=== PATIENT | female | born 1955 | race Caucasian/White ===

== ENCOUNTER 2019-12-15 09:34 | Outpatient (CLI) | payer MEDICARE, SELFPAY ==
--- NOTE | 2019-12-15 09:41 | MM_ITS ---
WS: [id number] SCREENING DIGITAL MAMMOGRAM WITH CAD HISTORY: SCREENING COMPARISON: 01/20/2018 and 12/20/2016 Bilateral CC and MLO views submitted. Computer aided detection analyzed. Breast composition: There are scattered areas of fibroglandular density. No suspicious masses, microc alcifications or architectural distortion. Benign calcifications within each breast. MM/[place] [id number] IMPRESSION: BI-RADS: 2-Benign FOLLOW UP: 1 Year Follow-up
== END 2019-12-15 09:35 | disposition home or self-care (01) ==
LOC: RADSHAW 09:38
PROVIDERS: Family Provider Family Medicine; Visit Provider Family Medicine
DX: Z12.31 Encounter for screening mammogram for malignant neoplasm of breast (principal)
CPT/HCPCS: 77067

== ENCOUNTER 2020-01-25 13:03 | Outpatient (CLI) | payer MEDICARE, SELFPAY ==
--- NOTE | 2020-01-25 15:00 | CT_ITS ---
WS: [id number] CT ABDOMEN AND PELVIS WITH CONTRAST HISTORY: Ventral Hernia TECHNIQUE: Imaging performed of the abdomen and pelvis with IV contrast. Single phase imaging of the abdomen. Coronal and sagittal reformats are submitted. All CT scans at [facility] use at least one of these dose optimization techniques: automated exposure control; mA and/or kV adjustment per patient size (includes targeted exams where dose is matched to clinical indication); or iterativ e reconstruction. IV CONTRAST: Omnipaque 300; 95 mL IV. Oral contrast: Yes. DLP: 1011.46 mGycm COMPARISON: None available. Lower thorax: Lung bases are clear. Heart is normal size. Small hiatal hernia. Surgical clips at the GE junction and stomach from prior gastric sleeve. Soft tissue lipoma over the LEFT lateral chest wal l. Liver/biliary system: Numerous cysts are present within the liver. No bile duct dilatation or solid m ass. Gallbladder: Normally distended gallbladder with small stone present. No acute inflammation. Pancreas: Normal. Spleen: Normal size spleen with a small cystic nodule. Adrenal glands: Normal. Right kidney: Normal. Left kidney: Normal. Aorta: Moderate atherosclerosis aorta. No aneurysm. Lymphadenopathy: None. Free fluid: None. GI tract: Moderate fecal retention and constipation. The appendix is normal. No significant diverticu lar disease. No obstruction. Abdominal wall: Multifocal ventral abdominal wall hernia. The entire width of the hernia measures 5.1 cm. There is a ventral and LEFT lateral component of the hernia. Hernia sac contains omentum but no GI tract. Pelvis: Normal urinary bladder. No free fluid in the pelvis. Prior hysterectomy. Bones: L4 anterolisthesis by 8.7 mm and L5 anterolisthesis by 5.0 cm. Facet joint arthropathy is note d bilaterally. No pars defects are identified. No osteoblastic or osteolytic bone disease. Slight inc rease in lumbar lordosis. CT/CT abdomen pelvis w con* [id number] IMPRESSION: 1. Multifocal ventral abdominal wall hernia. There is a ventral component and an additional component extending just to the LEFT of midline at the level of the umbilicus. Hernia sac contains omentum only. Minimal separation of the amberly ia sacs. There is a very thin septum the sacs. 2. Constipation. 3. Prior gastric sleeve. 4. Cholelithiasis. 5. Hepatic and splenic cysts. 6. Moderate atherosclerosis aorta. 7. Small hiatal hernia.
[2020-01-25] MEDS: iohexol 300 mg/mL 50 mL Btl IV (15:05)
[2020-01-25] MEDS: iodixanol 320 mg/mL 100mL Btl IV (15:06)
== END 2020-01-25 13:04 | disposition home or self-care (01) ==
LOC: RADWPI 13:08
PROVIDERS: Family Provider Family Medicine; PCP Family Medicine; Visit Provider Surgery
DX: K43.9 Ventral hernia without obstruction or gangrene (principal); K59.00 Constipation, unspecified; K80.20 Calculus of gallbladder without cholecystitis without obstruction; Z98.84 Bariatric surgery status; D73.4 Cyst of spleen; K76.89 Other specified diseases of liver; I70.0 Atherosclerosis of aorta; K44.9 Diaphragmatic hernia without obstruction or gangrene
CPT/HCPCS: 74177; Q9967

== ENCOUNTER 2020-03-15 06:04 | Day surgery (SDC) | payer MEDICARE, SELFPAY ==
[2020-03-14 12:05] VITALS: BMI 32.6
[2020-03-15] VITALS (9 sets, daily range): BP systolic 111–144; BP diastolic 66–84; PULSE 72–80; RESP 16–19; TEMP 36.3–36.6; O2SAT 95–100
--- NOTE | 2020-03-15 06:44 | P.HP_ITS ---
Same Day Surgery H&P Indication for Procedure/HPI DATE OF PROCEDURE: March 15, 2020 CHIEF COMPLAINT/INDICATIONFOR SURGICAL PROCEDURE: My hernia hurts PREOP DIAGNOSIS: Symptomatic ventral hernia PLANNED PROCEDRUE: Operation Date: 03/15/20 07:00 Proposed Procedures p Laparoscopic Ventral Hernia Repair w Mesh 62731 K43.9(Not Applicable) - Александр Trejo MD This is a pleasant 64 years old female patient undergone uneventful laparoscopic gastric sleeve 3 years ago and lost about 110 pounds yet before her surgery she did have ventral incisional hernia due to previous abdominal surgeries and she elected to hold off any potential hernia surgery till her weight loss being stabilized and before she was not much bothered by her hernia but now her symptoms are getting to the point that is interfering with her daily life activity. After thorough history physical examination and reviewing the chart and images I did psychosocial rehabilitation counselor the patient for laparoscopic ventral incisional hernia repair with mesh placement possible open ROS All systems have been reviewed negative except as for the above and per problem list Medications/Allergies* Home Medications Medication Instructions Recorded Confirmed Type L. gasseri-B. bifidum-B longum 1.5 1 cap PO QDAY cap 12/22/19 03/14/20 History billion cell capsule biotin 800 mcg tablet 800 mcg PO QDAY 12/22/19 03/14/20 History bupropion HCl 300 mg 24 hr tablet, 300 mg PO QAM 12/22/19 03/14/20 History extended release gabapentin 300 mg capsule 1,200 mg PO QDAY cap 12/22/19 03/14/20 History hydrochlorothiazide 25 mg tablet See Rx Instructions PO QDAY 12/22/19 03/14/20 History hydrocodone 5 mg-acetaminophen 325 1 tab PO QID PRN tab 12/22/19 03/14/20 History mg tablet levothyroxine 50 mcg capsule 37.5 mcg PO QDAY 12/22/19 03/14/20 History lidocaine-prilocaine 2.5 %-2.5 % 1 applic TOPICAL BID gm 12/22/19 03/14/20 History topical cream lovastatin 40 mg tablet 10 mg PO QDAY tab 12/22/19 03/14/20 History omega-3 fatty acids 1,000 mg 1,000 mg PO QDAY 12/22/19 03/14/20 History capsule omeprazole 20 mg capsule,delayed 20 mg PO QDAY 12/22/19 03/14/20 History release propranolol 40 mg tablet 40 mg PO QDAY tab 12/22/19 03/14/20 History calcium citrate 315 mg-vitamin D3 2 tab PO QDAY 12/24/19 03/14/20 History 250 unit tablet denosumab 60 mg/mL subcutaneous 60 mg SUBCUT ONCE 12/24/19 03/14/20 History syringe docusate sodium 250 mg capsule 250 mg PO QDAY 12/24/19 03/14/20 History fexofenadine 180 mg PO DAILY 03/14/20 03/14/20 History fluticasone propionate 1 spray INTRANASAL DAILY 03/14/20 03/14/20 History Allergies/Adverse Reactions Allergy/AdvReac Type Severity Reaction Status Date / Time cephalexin [From Keflex] AdvReac Yeast Verified 03/15/20 06:46 enalapril AdvReac ADR-Cough Verified 03/15/20 06:46 lisinopril AdvReac ADR-Cough Verified 03/15/20 06:46 Pertinent History/Comorbid Conditions* Medical History (Updated 12/27/19 @ 09:18 by Александр Trejo MD) GERD (gastroesophageal reflux disease) Hypercholesterolemia Hypertension Hypothyroidism Iron deficiency Obesity Vitamin D deficiency Surgical History (Updated 12/27/19 @ 09:18 by Александр Trejo MD) History of arthroscopy of left knee History of carpal tunnel release Right 10/2016 and 07/2016 Left History of cervical spinal surgery (1987) Laminectomy History of section 2x History of D&C 2x History of rhinoplasty Repair Dev. Septum History of tonsillectomy and adenoidectomy Status post laparoscopic sleeve gastrectomy Family History (Updated 12/22/19 @ 13:18 by EVAN Spencer) Alcohol abuse Father Depression Father Hypercholesterolemia Mother Father Cancer Father Hypertension Mother Father Denies family history of Anesthesia complication Bleeding disorder Social History Smoking and tobacco status: former smoker Quit status (tobacco): has quit using tobacco Second hand smoke exposure: No Alcohol intake: current Alcohol intake frequency: holidays/special occasions only Adopted: No Caregiver/support person: Yes Lives independently: Yes Household members: spouse Housing: House Marital status: Highest education level completed: High School Graduate service: No Current occupational status: retired Current occupational exposures/hazards: No Pets and animals: No History of recent travel: No Sexually active: No Current gender identity: Female Minal/Caodaism: Restoration Special minal needs: No Agree to transfusion: No Financial difficulty paying for basics: Decline to Answer Pertinent Exam Findings alert, oriented x 3, clear to auscultation bilaterally, regular rate & rhythm and procedure specific exam findings (Stable examination of the chronically incarcerated ventral incisional hernia) Recommendations Surgery/Procedure today (Laparoscopic ventral incisional hernia repair with mesh placement possible ope,informed consent per chart) Coding Level of Care Code Acute Ship Erector for Rosales Grady
--- NOTE | 2020-03-15 06:44 | ANES.PREANE2 ---
Pre-Anesthetic Assessment Pre-Anesthetic Assessment: Height/Weight: Height 1.55 m Weight 78.471 kg Temp Pulse Resp BP Pulse Ox 97.4 F L 72 16 144/84 97 03/15/20 06:20 03/15/20 06:20 03/15/20 06:20 03/15/20 06:20 03/15/20 06:20 Preop Diagnosis: Symptomatic ventral hernia Proposed Procedure: Operation Date: 03/15/20 07:00 Proposed Procedures p Laparoscopic Ventral Hernia Repair w Mesh 00955 K43.9(Not Applicable) - Александр Trejo MD Last intake: Intake Last Liquid Date 03/14/20 Last Liquid Time 23:00 Last Solid Date 03/14/20 Last Solid Time 16:30 Social: Social History: Tobacco (quit 1992) and No alcohol Exam: Pre-Anes Outpt Exam: alert, oriented x 3, clear to auscultation bilaterally and regular rate & rhythm Airway: Submandibular: WNL Cervical ROM: Other (limited, s/p cervical fusion) MP: 1 Dentition: Other (teeth ok) History/ROS: No significant history except as noted Pulmonary: Pulmonary: None reported CV/HEM: CV/HEM: HTN : : None reported Hepatic: Hepatic: None reported GI: GI: GERD (not well controlled) Metabolic: Metabolic: Hyperlipidemia and Thyroid Musc/skel: Musc/skel: Lower Back Pain and OA/DJD Neuropsych: Neuropsych: Anxiety and Depression Anesthetic Plan: ASA status: 3 Anesthesia: Anesthesia Evaluation and General Risk of > 500 ml blood loss (7ml/kg in children): No PFSH Anesthesia PFSH: Medical History GERD (gastroesophageal reflux disease) Hypercholesterolemia Hypertension Hypothyroidism Iron deficiency Obesity Vitamin D deficiency Surgical History (Updated 03/14/20 @ 12:12 by Violeta Perla RN) History of arthroscopy of left knee History of carpal tunnel release Right 10/2016 and 07/2016 Left History of cervical spinal surgery (1987) Laminectomy History of section 2x History of D&C 2x History of rhinoplasty Repair Dev. Septum History of tonsillectomy and adenoidectomy Status post laparoscopic sleeve gastrectomy Social History Smoking and tobacco status: former smoker Quit status (tobacco): has quit using tobacco Second hand smoke exposure: No Alcohol intake: current Alcohol intake frequency: holidays/special occasions only Adopted: No Caregiver/support person: Yes Lives independently: Yes Household members: spouse Housing: House Marital status: Highest education level completed: High School Graduate service: No Current occupational status: retired Current occupational exposures/hazards: No Pets and animals: No History of recent travel: No Sexually active: No Current gender identity: Female Minal/Congregational: Roman Catholic Special minal needs: No Agree to transfusion: No Financial difficulty paying for basics: Decline to Answer Data Anesthesia Cardiac Studies: No Data to Display
[2020-03-15] MEDS: sodium chloride 0.9% 1,000 ML 30 ML IV (06:46)
[2020-03-15] MEDS: heparin 5,000 unit/mL INJ 1 mL 2000 UNIT SUBCUT (06:51)
[2020-03-15 06:54] LABS: Basophils # 0.1 10^3/uL (0.0-0.1); Basophils % 0.8 %; Eosinophils # 0.1 10^3/uL (0.0-0.8); Eosinophils % 1.8 %; Hematocrit 44.4 % (37.0-47.0); Hemoglobin 14.4 g/dL (11.5-15.3); Lymphocytes # 2.2 10^3/uL (0.8-4.8); Lymphocytes % 33.3 %; Mean Corpuscular HGB Conc 32.4 g/dL (30.0-36.0); Mean Corpuscular Hemoglobin 29.8 pg (28.0-34.0); Mean Corpuscular Volume 91.7 fL (81-99); Monocytes # 0.5 10^3/uL (0.2-0.9); Monocytes % 7.8 %; Neutrophils # 3.7 10^3/uL (1.8-7.7); Neutrophils % 56.1 %; Nucleated Red Blood Cells % 0 %; Platelet Count 280 10^3/cmm (130-400); Red Blood Count 4.84 10^6/uL (4.1-5.3); Red Cell Distribution Width 13.1 % (12.1-15.1); White Blood Count 6.6 10^3/uL (4.0-10.0)
[2020-03-15] MEDS: clindamycin 900 MG/50 ML PREMIX 100 MG IV (06:57)
[2020-03-15 07:06] LABS: Anion Gap 15.1 (5-19); Blood Urea Nitrogen 18 mg/dL (8-23); Calcium 10.4 mg/dL (8.5-10.5); Carbon Dioxide 29 mmol/L (22-29); Chloride 103 mmol/L (98-107); Glomerular Filtration Rate 71.8 mL/min (90-130); Glucose 103 mg/dL (65-115); Osmolality Calculated 293 mOsm/kg (285-295); Potassium 4.1 mmol/L (3.5-5.1); Sodium 143 mmol/L (136-145)
--- NOTE | 2020-03-15 07:33 | SUR.OPER ---
0725 - Pt's ze notified of surgery start via his cell phone.
--- NOTE | 2020-03-15 08:50 | SUR.OPER ---
2962 - Jaquan updated on surgery progress and pt status via his cell phone.
--- NOTE | 2020-03-15 09:42 | P.OP_ITS ---
Operative Report Date of procedure: March 15, 2020 Pre-op Diagnosis: Symptomatic ventral hernia Post-op diagnosis: same Post-op Diagnosis: Extensive intra-abdominal adhesions Procedure Done: Laparoscopic ventral incisional hernia repair with mesh placement Laparoscopic extensive adhesio lysis exceeded 1 hour of the operative Implants: Proceed mesh 15 x 20 cm Specimens removed/disposition: Hernial sac and contents Surgeon: Александр Trejo Coremaker Helper: Surgical minesh Mcdonald Circulating nurse Tayler Anesthesia: General (construction ironworker Kenneth) Estimated blood loss (mL): 25 IV fluids (mL): 1,200 Urine output (mL): 100 Condition: stable Disposition: same day Brief History: This is pleasant 64 years old female patient well-known to me from previous clinical encounters, patient had history of symptomatic ventral incisional hernia yet her symptoms got worse, she was evaluated at my office and counseled for laparoscopic ventral incisional hernia repair with mesh placement possible open. Patient agreed to proceed accordingly Informed consent per chart Procedure: Patient was brought to the operating room after appropriate preoperative identification at the holding area. Patient had received heparin subcutaneous pss delivery professional to the OR.Patient Was then placed in supine position, Cummins catheter was administered by circulating nurse revealing clear urine.General endotracheal anesthesia was administered the patient was intubated without incident.Both arms were tucked. Time-out was done verifying the patient's name/date of /planned procedure and destination after the procedure, all were in agreement. SCDs confirmed to be functioning, preoperative antibiotics administered per protocol, and beta adriana protocol was confirmed, appropriate positioning of the patient was done . Patient was secured appropriately to the table and all pressure points were padded. Patient was given prophylactic DVT heparin prior to surgery Prep and drape of the abdomen was done under the usual sterile technique. After Injection of local anesthetic an incision was made in the left upper subcostal margin along the left anterior axillary line of the abdomen , 5 mm Opti-Vu trocar was used with a 0 scope 5 mm under direct visualization safe entrance to the abdomen was achieved and all through abdominal wall layers. The abdomen was insufflated to 15 mmHg at 40 L/m , abdomen was surveyed showing no signs of injuries, followed by placement of 12 mm trocar under direct visualization about a handbreadth inferior to first trocar, followed by another 5 mm trocar inserted 1 handbreadth inferior to the 12 mm trocar. Using a standard laparoscopic scissors connected to heat cautery omental adhesions were carefully dissected out from the hernia defect. There was extensive adhesions and the LigaSure device was then opened to be used and extensive adhesio lysis took more than 1 hour of the operative time, appropriate hemostasis and for dissection of the hernial contents was achieved. Hernial content omental fat and sac was sent for permanent pathology that was delivered into Endo Catch bag under direct visualized At this point measurement of the fascial defect about 5 x 2-1/2 cm in diameter, I elected to apply multiple PDS sutures [id number] to close the fascial defects under direct visualization,At that point a Proceed mesh system 15 cm x 20cm having about more than 5 cm overlap from the fascial defect edge. Trans- fascial PDS sutures were used to close the hernia site defect [id number] suture under direct visualization. Application of PDS sutures at the 4 portions of the mesh was done after appropriate orientation ex vivo, then the mesh was rolled then introduced through the 12 mm trocar, making sure that the smooth service faces the bowel and the rough surface faces abdominal wall, fascial closure device was introduced after creating 4 skin stab incisions using 11 blade knife, matching site of exit of PDS sutures, fascial closure device was introduced to grab onto the 2 limbs of PDS sutures from each pole of the mesh and grabbed and tied down ex vivo, defect was at the center of the mesh. At this point the mesh was adjusted found to be in a good position with good overlap,no trans-fascial sutures were used at this point, an absorbable Tack fixation device, performing a double crown technique to secure the mesh in place was used, Hemostasis was secured, there was no evidence of bleeding, the mesh appears to be in good position and well spread without crumbling. Final survey laparoscopy was done showing no injuries Bilateral TAP (transversus abdominous plain peripheral nerve block )block using Exparel 20 mL Exparel 40 ml Normal saline 20 ml bupivacaine 0.25% 30 mL on each side injected 20 mL injected the port sites Closure of the 12 mm trocar site, using interrupted PDS sutures under direct visualization.Trocars were then taken out under direct visualization and gas was allowed to escape., followed by subcuticular closure for all trocar sites, including the fascial closure device sites , Dermabond was applied Patient tolerated the procedure well, and an abdominal binder was then wrapped around the patient's abdomen. The patient was then extubated and transferred to the recovery room in stable condition Cummins catheter was taken out at the end of the procedure without complication All count of instruments and sponges were completed I Was present for the whole entire procedure
[2020-03-15] MEDS: fentaNYL 50 mcg/mL INJ 2mL 100 MCG IVP (10:08)
--- NOTE | 2020-03-15 10:23 | SUR.PHASEI ---
PT AWAKE ALERT ON RA SATS 95% ABD SOFT ABD BINDER IN PLACE SCDS ON BILAT, PT STATES PAIN IS TOLERABLE NOW AND PT TAKIMG ICE CHIPS
[2020-03-15] MEDS: HYDROcodone-acetaminophen 5-325 mg Tablet 1 TAB PO (10:45)
== END 2020-03-15 11:30 | disposition home or self-care (01) ==
PROVIDERS: Family Provider Family Medicine; PCP Family Medicine; Visit Provider Surgery
PROC: 0WQF4ZZ Repair Abdominal Wall, Percutaneous Endoscopic Approach (ICD-10-PCS; CPT 49654; principal; 2020-03-15 07:00)
DX: K43.9 Ventral hernia without obstruction or gangrene (principal); K66.0 Peritoneal adhesions (postprocedural) (postinfection); K21.9 Gastro-esophageal reflux disease without esophagitis; I10 Essential (primary) hypertension; E66.9 Obesity, unspecified; Z68.32 Body mass index [BMI] 32.0-32.9, adult; Z87.891 Personal history of nicotine dependence; E78.5 Hyperlipidemia, unspecified; M19.90 Unspecified osteoarthritis, unspecified site
CPT/HCPCS: 49654; 12345; 36415; 51702; 80048; 85025; 88302; 96365; 96372; C9290; J0131; J1100; J1644; J2001; J2405; J2704; J2765; J3010; J3490; J7030

== ENCOUNTER 2021-01-19 09:45 | Outpatient (CLI) | payer MEDICARE, SELFPAY ==
--- NOTE | 2021-01-19 09:50 | MM_ITS ---
WS: [id number] SCREENING DIGITAL MAMMOGRAM WITH CAD HISTORY: SCREENING COMPARISON: 12/15/2019 and 01/20/2018 Bilateral CC and MLO views submitted. Computer aided detection analyzed. Breast composition: There are scattered areas of fibroglandular density. There is a new asymmetry ej suring 9 mm in the anterior LEFT breast seen on the MLO projection. This is just posterior and inferi or to the nipple line. Not definitely seen on prior studies. This is also not identified projection. Otherwise benign calcifications. MM/[place] [id number] IMPRESSION: BI-RADS: 0-Incomplete: Need additional imaging evaluation FOLLOW UP: Need Additional Imaging LEFT breast: Spot compression views ( MLO). True ML. Ultrasound to follow if ab normality persists.
== END 2021-01-19 09:46 | disposition home or self-care (01) ==
LOC: RADSHAW 09:48
PROVIDERS: PCP Family Medicine; Visit Provider Family Medicine
DX: Z12.31 Encounter for screening mammogram for malignant neoplasm of breast (principal); N64.89 Other specified disorders of breast
CPT/HCPCS: 77067

== ENCOUNTER 2021-03-02 10:27 | Outpatient (CLI) | payer MEDICARE, SELFPAY ==
--- NOTE | 2021-03-02 10:33 | US_ITS ---
WS: [id number] ADDITIONAL VIEWS LEFT MAMMOGRAM LEFT BREAST ULTRASOUND HISTORY: ABNORMAL MAMMOGRAM COMPARISON: 01/19/2021, 12/15/2019 LEFT MAMMOGRAM: Spot compression view and true ML. Asymmetry persists inferior to the nipple line measuring 9 mm. Ovoid asymmetry in the anterior breast . No distortion or associated calcification. LEFT BREAST ULTRASOUND 2-D and color Doppler imaging submitted. Ultrasound is directed just below the nipple line. There is a hypoechoic irregular mass at 4:00, 2 cm from the nipple measuring 9 x 7 x 9 mm. No significant increased vascularity. There is in the additi onal elongated tubular structure which is probably a duct measuring 3 x 5 x 2 mm at 7:00, 1 cm from t he nipple. US/US breast LT limited* [id number] IMPRESSION: BI-RADS: 4-Suspicious Finding-Biopsy Should Be Considered FOLLOW UP: Biopsy Recommended Ultrasound-guided biopsy recommended LEFT breast mass at 4:00.
== END 2021-03-02 10:28 | disposition home or self-care (01) ==
LOC: RADSHAW 10:31
PROVIDERS: PCP Family Medicine; Visit Provider Family Medicine
DX: R92.8 Other abnormal and inconclusive findings on diagnostic imaging of breast (principal); N63.23 Unspecified lump in the left breast, lower outer quadrant
CPT/HCPCS: 76642; 77065

== ENCOUNTER 2021-03-14 13:02 | Outpatient (CLI) | payer MEDICARE, SELFPAY ==
--- NOTE | 2021-03-14 13:13 | US_ITS ---
WS: [id number] ULTRASOUND-GUIDED LEFT BREAST BIOPSY CLINICAL INFORMATION: ABNORMAL MAMMO COMPARISON: None. FINDINGS: The procedure including risks, benefits, and complications were discussed with the patient who agreed to proceed. Using sterile technique patient was prepped and draped in the usual sterile fashion. Aft er 1% lidocaine utilizing real-time ultrasound guidance 6 14-gauge cores were obtained of the left br east lesion at the 4 o'clock position. Subsequently a titanium clip was placed in the biopsy cavity. No immediate complications. Pathology demonstrates -Benign breast tissue with fibrocystic changes and stromal sclerosis. -No malignancy identified. -Microcalcifications identified. US/[place] [id number] IMPRESSION: 1. Uncomplicated ultrasound-guided left breast biopsy. 2. The pathology demonstrates benign breast tissue with fibrocystic changes an d stromal sclerosis. No malignancy identified. BI-RADS: 3-Probably Benign FOLLOW UP: 6 Month Follow-up RECOMMEND 6 MONTH FOLLOW-UP LEFT DIAGNOSTIC MAMMOGRAPHY AND ULTRASOUND POSTBIOP SY
== END 2021-03-14 13:03 | disposition home or self-care (01) ==
LOC: RAD 13:08
PROVIDERS: PCP Family Medicine; Visit Provider Family Medicine
DX: R92.8 Other abnormal and inconclusive findings on diagnostic imaging of breast (principal)
CPT/HCPCS: 19083; 88305

== ENCOUNTER 2021-04-17 08:10 | Outpatient (CLI) | payer MEDICARE, SELFPAY ==
--- NOTE | 2021-04-17 09:42 | FL_ITS ---
WS: [id number] Single CONTRAST UPPER GI EXAMINATION HISTORY: Z98.890 - Other specified postprocedural states, prior gastric sleeve several years ago. COMPARISON: 01/11/2017 FLUOROSCOPY TIME: 1.2 minutes. Nurse Case Management film reveals normal distribution of gas throughout the GI tract. No suspicious masses or calcif ications. Barium mixture of swallowed without difficulty. There is evidence for gastric sleeve which appears in tact. There is also a small reducible hiatal hernia noted during this examination. Moderate amount of esophageal reflux noted to the upper thoracic esophagus, just above the raina. Duodenal bulb was no rmal. FL/FL upper GI w air* [id number] IMPRESSION: 1. Moderate amount of gastroesophageal reflux into the upper esophagus. 2. Small reducible hiatal hernia. 3. Remote gastric sleeve
== END 2021-04-17 08:11 | disposition home or self-care (01) ==
PROVIDERS: PCP Family Medicine; Visit Provider Surgery
DX: Z98.890 Other specified postprocedural states (principal); K44.9 Diaphragmatic hernia without obstruction or gangrene; Z98.84 Bariatric surgery status
CPT/HCPCS: 74246

== ENCOUNTER → 2021-07-07 10:52 | Outpatient (BNVA) | payer MEDICARE, SELFPAY | PROVIDERS: PCP Family Medicine; Visit Provider Surgery | DX: Z20.822 Contact with and (suspected) exposure to COVID-19 (principal) | CPT/HCPCS: 87635 ==

== ENCOUNTER 2021-07-12 06:55 | Day surgery (SDC) | payer MEDICARE, SELFPAY ==
[2021-07-10 14:15] VITALS: BMI 34.2
[2021-07-12 07:12] VITALS: BP 109/77; PULSE 71; RESP 20; TEMP 36.2; O2SAT 97
[2021-07-12] MEDS: sodium chloride 0.9% 1,000 ML 30 ML IV (07:45)
--- NOTE | 2021-07-12 08:36 | W.PM.OPSFHP ---
Same Day Surgery H&P Indication for Procedure/HPI DATE OF PROCEDURE: July 12, 2021 CHIEF COMPLAINT/INDICATIONFOR SURGICAL PROCEDURE: GAINING WEIGHT PREOP DIAGNOSIS: WEIGHT REGAIN AFRET SLEEVE GASTRECTOMY PLANNED PROCEDRUE: Operation Date: 07/12/21 08:30 Proposed Procedures p EGD 32956 Z98.84(Not Applicable) - Александр Trejo MD This is pleasant 65 years old female patient well-known to me as she did undergo a laparoscopic vertical sleeve gastrectomy about 4 years ago back in July 2017 and patient had lost overall about 70 pounds. Later on patient undergone a laparoscopic ventral incisional hernia repair with mesh placement by me. As it has been a while since I have seen the patient in my practice, apparently the patient undergone spine surgery last September 2020 and per her description ever since she had problem with right lower extremity mobility and she had gained weight because she was limited in getting around. Last November patient's primary care provider have checked her bariatric lab values which are not available in our system unfortunately and she was instructed to hold off any bariatric vitamins and those labs were repeated recently and she continues to be off any bariatric vitamins. Patient comes today with her concern about her weight regain she mentioned that she lost 70 pounds and regained all but 15 pounds with current weight of 196 pounds and a BMI of 37. Her omeprazole was doubled by her primary care provider service and that seemed to help some. Interim history 07/12/2021. 8 8 Patient undergone an upper GI study that did show 1. Moderate amount of gastroesophageal reflux into the upper esophagus. 2. Small reducible hiatal hernia. 3. Remote gastric sleeve Patient comes today for diagnostic EGD ROS All systems have been reviewed negative except negative except as per the above or per problem list Medications/Allergies* Home Medications Medication Instructions Recorded Confirmed Type Lactobacills gasseri-Bifidobac 1 cap PO QDAY cap 12/22/19 07/12/21 History bifidum,longum 1.5 billion cell capsule gabapentin 300 mg capsule 1,200 mg PO QDAY cap 12/22/19 07/12/21 History hydrocodone 5 mg-acetaminophen 325 1 tab PO QID PRN tab 12/22/19 07/12/21 History mg tablet levothyroxine 50 mcg capsule 50 mcg PO QDAY 12/22/19 07/12/21 History lidocaine-prilocaine 2.5 %-2.5 % 1 applic TOPICAL BID gm 12/22/19 07/12/21 History topical cream lovastatin 40 mg tablet 10 mg PO QDAY tab 12/22/19 07/12/21 History omega-3 fatty acids 1,000 mg 1,000 mg PO QDAY 12/22/19 07/12/21 History capsule propranolol 40 mg tablet 20 mg PO BID tab 12/22/19 07/12/21 History calcium citrate 315 mg 2 tab PO QDAY 12/24/19 07/12/21 History calcium-vitamin D3 6.25 mcg (250 unit) tablet denosumab 60 mg/mL subcutaneous 60 mg SUBCUT ONCE 12/24/19 07/12/21 History syringe docusate sodium 250 mg capsule 250 mg PO QDAY 12/24/19 07/12/21 History omeprazole 20 mg capsule,delayed 20 mg PO BID cap 04/12/21 07/12/21 History release acetaminophen [Tylenol Extra 500 mg PO Q6H PRN 07/10/21 07/12/21 History Strength] fexofenadine [Kassi] 30 mg PO DAILY 07/10/21 07/12/21 History hydrochlorothiazide See Rx Instructions .ROUTE .COMPLEX 07/10/21 07/12/21 History Allergies/Adverse Reactions Allergy/AdvReac Type Severity Reaction Status Date / Time nickel Allergy Mild ALGY-Rash Verified 07/12/21 08:40 cephalexin [From Keflex] AdvReac Yeast Verified 07/12/21 08:40 enalapril AdvReac ADR-Cough Verified 07/12/21 08:40 lisinopril AdvReac ADR-Cough Verified 07/12/21 08:40 Current Medications: Generic Name Dose Route Start Last Admin Trade Name Freq PRN Reason Stop Dose Admin Sodium Chloride 1,000 mls @ 30 mls/hr 07/12/21 07:15 07/12/21 07:45 Sodium Chloride 0.9% IV 07/13/21 07:14 30 mls/hr .Q24H NKECHI Administration Pertinent History/Comorbid Conditions* Medical History (Updated 04/13/21 @ 07:53 by Александр Trejo MD) GERD (gastroesophageal reflux disease) Hypercholesterolemia Hypertension Hypothyroidism Iron deficiency Obesity Ventral hernia Vitamin D deficiency Surgical History (Updated 03/24/20 @ 08:13 by Александр Trejo MD) History of arthroscopy of left knee History of carpal tunnel release Right 10/2016 and 07/2016 Left History of cervical spinal surgery (1987) Laminectomy History of section 2x History of D&C 2x History of hernia repair History of rhinoplasty Repair Dev. Septum History of tonsillectomy and adenoidectomy Hx of hysterectomy Status post laparoscopic sleeve gastrectomy Family History (Updated 12/22/19 @ 13:18 by EVAN Spencer) Alcohol abuse Father Depression Father Hypercholesterolemia Mother Father Cancer Father Hypertension Mother Father Denies family history of Anesthesia complication Bleeding disorder Social History Smoking and tobacco status: former smoker Quit status (tobacco): has quit using tobacco Second hand smoke exposure: No Alcohol intake: current Alcohol intake frequency: holidays/special occasions only Adopted: No Caregiver/support person: Yes Lives independently: Yes Household members: spouse Housing: House Marital status: Highest education level completed: High School Graduate service: No Current occupational status: retired Current occupational exposures/hazards: No Pets and animals: No History of recent travel: No Sexually active: No Current gender identity: Female Minal/Christianity: Hindu Special minal needs: No Agree to transfusion: No Financial difficulty paying for basics: Decline to Answer Pertinent Exam Findings alert, oriented x 3, clear to auscultation bilaterally, regular rate & rhythm and procedure specific exam findings (Abdominal examination nontender nondistended soft) Recommendations Surgery/Procedure today (Diagnostic EGD with possible biopsy) Coding Level of Care Code Acute Computer Science Instructor for [employer]
--- NOTE | 2021-07-12 08:40 | P.ANESASSM_ITS ---
Pre-Anesthetic Assessment Pre-Anesthetic Assessment: Height/Weight: Height 1.57 m Weight 84.822 kg Temp Pulse Resp BP Pulse Ox 97.1 F L 71 20 H 109/77 97 07/12/21 07:12 07/12/21 07:12 07/12/21 07:12 07/12/21 07:12 07/12/21 07:12 Preop Diagnosis: WEIGHT REGAIN AFRET SLEEVE GASTRECTOMY Proposed Procedure: Operation Date: 07/12/21 08:30 Proposed Procedures p EGD 21878 Z98.84(Not Applicable) - Александр Trejo MD Was Beta Thelma taken within 24 hours: Yes Was Clonidine taken within 24 hours: N/A Last intake: Intake Last Liquid Date 07/11/21 Last Liquid Time 21:00 Last Solid Date 07/11/21 Last Solid Time 20:30 Social: Social History: No alcohol and No tobacco Exam: Pre-Anes Outpt Exam: alert, oriented x 3, clear to auscultation bilate rally and regular rate & rhythm Airway: Submandibular: WNL Cervical ROM: WNL MP: 1 Dentition: Chipped History/ROS: No significant history except as noted Pulmonary: Pulmonary: None reported CV/HEM: CV/HEM: HTN : : None reported Hepatic: Hepatic: None reported GI: GI: GERD and Hiatus hernia Metabolic: Metabolic: Hyperlipidemia, Morbid obesity and Thyroid Musc/skel: Musc/skel: OA/DJD Neuropsych: Neuropsych: Anxiety and Depression Anesthetic Plan: ASA status: 3 Anesthesia: Anesthesia Evaluation and MAC Risk of > 500 ml blood loss (7ml/kg in children): No Meds/Allergies Current Medications: Current Medications Generic Name Dose Route Start Last Admin Trade Name Freq PRN Reason Stop Dose Admin Sodium Chloride 1,000 mls @ 30 ml s/hr 07/12/21 07:15 07/12/21 07:45 Sodium Chloride 0.9% IV 07/13/21 07:14 30 mls/hr .Q24H NKECHI Administration PFSH Anesthesia PFSH: Medical History GERD (gastroesophageal reflux disease) Hypercholesterolemia Hypertension Hypothyroidism Iron deficiency Obesity Ventral hernia Vitamin D deficiency Surgical History (Updated 04/19/21 @ 11:31 by EVAN Spencer) History of arthroscopy of left knee History of carpal tunnel release Right 10/2016 and 07/2016 Left History of cervical spinal surgery (1987) Laminectomy History of section 2x History of D&C 2x History of hernia repair History of rhinoplasty Repair Dev. Septum History of tonsillectomy and adenoidectomy Hx of hysterectomy Status post laparoscopic sleeve gastrectomy Family History Mother Hypertension Hypercholesterolemia Father Hypertension Hypercholesterolemia Alcohol abuse Cancer Depression Denies family history of Anesthesia complication Bleeding disorder Social History Smoking and tobacco status: former smoker Quit status (tobacco): has quit using tobacco Second hand smoke exposure: No Alcohol intake: current Alcohol intake frequency: holidays/special occasions only Adopted: No Caregiver/support person: Yes Lives independently: Yes Household members: spouse Housing: House Marital status: Highest education level completed: High School Graduate service: No Current occupational status: retired Current occupational exposures/hazards: No Pets and animals: No History of recent travel: No Sexually active: No Current gender identity: Female Minal/Christian: Oriental Orthodox Special minal needs: No Agree to transfusion: No Financial difficulty paying for basics: Decline to Answer Data Anesthesia Cardiac Studies: No Data to Display
[2021-07-12 08:53] VITALS: BP 104/69; PULSE 68; RESP 16; TEMP 36.2; O2SAT 97
--- NOTE | 2021-07-12 13:39 | ANE.PACU2 ---
Inpatient post-anesthesia follow up: Airway intact: Yes Vital signs: Temperature 97.1 F Pulse Rate 68 Respiratory Rate 16 Blood Pressure 104/69 Pulse Oximetry 97 Oxygen Delivery Me thod Nasal Cannula Oxygen Flow Rate 2 Fraction of Inspir ed Oxygen Hydration adequate: Yes Nausea and vomiting: No Pain level: 2 Mental status: Baseline
[2021-07-13 06:05] LABS: H. Pylori / CLO Test Negative
== END 2021-07-12 09:27 | disposition home or self-care (01) ==
PROVIDERS: PCP Family Medicine; Visit Provider Surgery
PROC: 0DJ08ZZ Inspection of Upper Intestinal Tract, Via Natural or Artificial Opening Endoscopic (ICD-10-PCS; CPT 43235; principal; 2021-07-12 08:30)
DX: Z98.84 Bariatric surgery status (principal); R63.5 Abnormal weight gain; Z68.37 Body mass index [BMI] 37.0-37.9, adult; K21.00 Gastro-esophageal reflux disease with esophagitis, without bleeding; K29.70 Gastritis, unspecified, without bleeding; E78.00 Pure hypercholesterolemia, unspecified; I10 Essential (primary) hypertension; E03.9 Hypothyroidism, unspecified; E55.9 Vitamin D deficiency, unspecified; Z87.891 Personal history of nicotine dependence; E78.5 Hyperlipidemia, unspecified; M19.90 Unspecified osteoarthritis, unspecified site
CPT/HCPCS: 43239; 87077; 96360; 96361; J7030

== ENCOUNTER 2021-07-17 14:42 | Outpatient (CLI) | payer MEDICARE, SELFPAY ==
--- NOTE | 2021-07-17 14:53 | XR_ITS ---
WS: [id number] Exam: XR shoulder RT min 2V* [id number] Date/Time of Exam: 07/17/2021 3:14 PM Reason For Exam: R SHOULDER PAIN/DJD/OSTEOPOROSIS No acute fracture or dislocation. Degenerative change at the glenohumeral joint. Hypertrophic spurrin g along the medial aspect of the humeral head. Normal soft tissues. XR/XR shoulder RT min 2V* [id number] IMPRESSION: 1. Degenerative change of the glenohumeral joint. 2. No fracture or dislocation.
== END 2021-07-17 14:43 | disposition home or self-care (01) ==
PROVIDERS: PCP Family Medicine; Visit Provider Family Medicine
DX: M25.511 Pain in right shoulder (principal); M81.0 Age-related osteoporosis without current pathological fracture; M19.90 Unspecified osteoarthritis, unspecified site
CPT/HCPCS: 73030

== ENCOUNTER 2022-04-10 10:04 | Outpatient (CLI) | payer MEDICARE, SELFPAY ==
--- NOTE | 2022-04-10 10:18 | MM_ITS ---
WS: [id number] SCREENING DIGITAL BREAST TOMOSYNTHESIS MAMMOGRAM WITH CAD HISTORY: Screening; hx LT BREAST BIOPSY COMPARISON: 03/02/2021, 01/19/2021, 12/15/2019, 01/20/2018 Bilateral CC and MLO with tomosynthesis and synthetic mammography submitted. Computer aided detection analyzed. Breast composition: There are scattered areas of fibroglandular density. Ovoid nodule measuring 11 x 9 mm in the anterior LEFT breast is reidentified. There is an adjacent biopsy clip. Benign calcificat ion in the anterior RIGHT breast. MM/[place] [id number] IMPRESSION: BI-RADS: 0-Incomplete: Need additional imaging evaluation FOLLOW UP: Need Additional Imaging Patient was to return for six-month follow-up after the biopsy of the LEFT [address] mass that was performed on 03/14/2021. Patient did not return for that ultras ound. This nodule is still present and very minimally increased in size. This b reast mass had concerning features on the ultrasound despite the negative biops y. Recommend at least limited LEFT breast ultrasound evaluation to document con tinued stability.
== END 2022-04-10 10:05 | disposition home or self-care (01) ==
PROVIDERS: PCP Family Medicine; Visit Provider Family Medicine
DX: Z12.31 Encounter for screening mammogram for malignant neoplasm of breast (principal); R92.8 Other abnormal and inconclusive findings on diagnostic imaging of breast
CPT/HCPCS: 77063; 77067

== ENCOUNTER 2022-04-26 15:24 | Outpatient (CLI) | payer MEDICARE, SELFPAY ==
--- NOTE | 2022-04-26 15:41 | US_ITS ---
WS: [id number] ULTRASOUND BREAST LEFT TECHNIQUE: Ultrasound left breast focused area of concern. CLINICAL INFORMATION: ABNORMAL MAMMOGRAM COMPARISON: March 14, 2021 ultrasound and March 02, 2021 FINDINGS: Previous biopsy was negative for malignancy. Ultrasound characteristics have a suspicious a ppearance which is unchanged. Ultrasound LEFT breast the 4:00 position 2 cm notable. Again seen is the hypoechoic shadowing lesion measuring 0.6 x 1.2 x 1.1 cm. No vascularity. This appears unchanged from the prior examinations. This is probably benign and recommend 6 month follow-up LEFT diagnostic mammography and ultrasound to document 18-24 month stability. US/US breast LT limited* [id number] IMPRESSION: BI-RADS 3: PROBABLY BENIGN FOLLOW UP: Recommend 6 month follow-up LEFT diagnostic mammography and ultrasou nd to document 18-24 month stability
== END 2022-04-26 15:25 | disposition home or self-care (01) ==
LOC: RAD 15:28
PROVIDERS: PCP Family Medicine; Visit Provider Family Medicine
DX: R92.8 Other abnormal and inconclusive findings on diagnostic imaging of breast (principal)
CPT/HCPCS: 76642

== ENCOUNTER → 2022-06-12 11:29 | Outpatient (BNVA) | payer MEDICARE, SELFPAY | PROVIDERS: PCP Family Medicine; Visit Provider Family Medicine | DX: E78.00 Pure hypercholesterolemia, unspecified (principal); I10 Essential (primary) hypertension; E03.9 Hypothyroidism, unspecified; E61.1 Iron deficiency; K21.9 Gastro-esophageal reflux disease without esophagitis; K29.70 Gastritis, unspecified, without bleeding; R63.5 Abnormal weight gain | CPT/HCPCS: 80053; 82465; 84443; 85025 ==

== ENCOUNTER 2022-06-18 12:53 | Outpatient (CLI) | payer MEDICARE, SELFPAY ==
--- NOTE | 2022-06-18 13:03 | XR_ITS ---
WS: [id number] DEXA (DUAL ENERGY X-RAY ABSORPTIOMETRY) Bone mineral density was performed using a coRank machine. HISTORY: OSTEOPOROSIS, POSTMENOPAUSAL COMPARISON: None available. Left forearm BMD: 0.903 g/cm2. T score: 0.3 Z score: 2.0 Total hip BMD: Left: 1.016 g/cm2. T score: 0.1 Z score: 1.0 Right: 1.052 g/cm2. T score: 0.4 Z score: 1.3 10 year probability of a major osteoporotic fracture is 7.8%. XR/XR DEXA axial skeleton* [id number] IMPRESSION: Normal bone mineral density based upon the WHO classification for females.
== END 2022-06-18 12:54 | disposition home or self-care (01) ==
LOC: RAD 12:54
PROVIDERS: PCP Family Medicine; Visit Provider Family Medicine
DX: M81.0 Age-related osteoporosis without current pathological fracture (principal)
CPT/HCPCS: 77080

== ENCOUNTER → 2022-06-25 07:28 | Outpatient (BNVA) | payer MEDICARE, SELFPAY | PROVIDERS: PCP Family Medicine; Visit Provider Internal Medicine | DX: Z87.891 Personal history of nicotine dependence (principal); M81.0 Age-related osteoporosis without current pathological fracture; E55.9 Vitamin D deficiency, unspecified | CPT/HCPCS: 99204 ==

== ENCOUNTER 2022-10-30 13:22 | Outpatient (CLI) | payer MEDICARE, SELFPAY ==
--- NOTE | 2022-10-30 | US_ITS ---
WS: [id number] LEFT 3D TOMOSYNTHESIS DIGITAL MAMMOGRAPHY WITH CAD CLINICAL INFORMATION: 6 MO F/U HISTORY: Previous biopsy March 14, 2021 demonstrated benign breast tissue COMPARISON: 2021 and 2020. TECHNIQUE: 3 views of the left breast were obtained. FINDINGS: Scattered fibroglandular densities of the left breast. Again seen is the 11 mm ovoid nodule measuring 11 x 9 mm in the anterior LEFT breast. This is stable in appearance. Adjacent biopsy clip. Ultrasound described below. ULTRASOUND BREAST LEFT TECHNIQUE: Ultrasound left breast focused area of concern. CLINICAL INFORMATION: 6 MO F/U FINDINGS: Ultrasound LEFT breast at the 4:00 position 2 cm. Again seen is the hypoechoic shadowing lesion taller than wide measuring 1.0 x 0.8 x 0.8 cm. This does not appear significantly changed compared to the previous examinations. This was previously biopsied and negative for malignancy at that time. Recommend additional six-month follow-up to confirm stability. Alternatively, considering the suspicious ultrasound characteristics this could be rebiopsied for more definitive assessment MM/[place] [id number] IMPRESSION: BI-RADS: 3-Probably Benign FOLLOW UP: 6 Month Follow-up Recommend 6 month follow-up LEFT breast diagnostic mammography and ultrasound. Alternatively, repeat ultrasound-guided biopsy would be reasonable considering persistence and ultrasound characteristics MTDD
--- NOTE | 2022-10-30 13:35 | MM_ITS ---
WS: [id number] LEFT 3D TOMOSYNTHESIS DIGITAL MAMMOGRAPHY WITH CAD CLINICAL INFORMATION: 6 MO F/U HISTORY: Previous biopsy March 14, 2021 demonstrated benign breast tissue COMPARISON: 2021 and 2020. TECHNIQUE: 3 views of the left breast were obtained. FINDINGS: Scattered fibroglandular densities of the left breast. Again seen is the 11 mm ovoid nodule measuring 11 x 9 mm in the anterior LEFT breast. This is stable in appearance. Adjacent biopsy clip. Ultrasoun d described below. ULTRASOUND BREAST LEFT TECHNIQUE: Ultrasound left breast focused area of concern. CLINICAL INFORMATION: 6 MO F/U FINDINGS: Ultrasound LEFT breast at the 4:00 position 2 cm. Again seen is the hypoechoic shadowing lesion talle r than wide measuring 1.0 x 0.8 x 0.8 cm. This does not appear significantly changed compared to the previous examinations. This was previously biopsied and negative for malignancy at that time. Recommend additional six-month follow-up to confirm stability. Alternatively, considering the suspicious ultrasound characteristics this could be rebiopsied for mor e definitive assessment MM/[place] [id number] IMPRESSION: BI-RADS: 3-Probably Benign FOLLOW UP: 6 Month Follow-up Recommend 6 month follow-up LEFT breast diagnostic mammography and ultrasound. Alternatively, repeat ultrasound-guided biopsy would be reasonable considering persistence and ultrasound characteristics.
--- NOTE | 2022-10-30 13:36 | US_ITS ---
WS: [email or web address] See Diagnostic mammography report
== END 2022-10-30 13:23 | disposition home or self-care (01) ==
LOC: RAD 13:24
PROVIDERS: PCP Family Medicine; Visit Provider Family Medicine
DX: N63.23 Unspecified lump in the left breast, lower outer quadrant (principal)
CPT/HCPCS: 76642; 77061; G0279

== ENCOUNTER → 2022-11-27 08:53 | Outpatient (BNVA) | payer MEDICARE, SELFPAY | PROVIDERS: PCP Family Medicine; Visit Provider Family Medicine | DX: E55.9 Vitamin D deficiency, unspecified (principal); M81.0 Age-related osteoporosis without current pathological fracture; I10 Essential (primary) hypertension; E03.9 Hypothyroidism, unspecified; E78.00 Pure hypercholesterolemia, unspecified | CPT/HCPCS: 80053; 80061; 82306; 84443 ==

== ENCOUNTER → 2023-02-20 08:53 | Outpatient (BNVA) | payer MEDICARE, SELFPAY | PROVIDERS: PCP Family Medicine; Visit Provider Internal Medicine | DX: M81.0 Age-related osteoporosis without current pathological fracture (principal); E55.9 Vitamin D deficiency, unspecified | CPT/HCPCS: 99213 ==

== ENCOUNTER → 2023-03-08 09:50 | Outpatient (BNVA) | payer MEDICARE, SELFPAY | PROVIDERS: PCP Family Medicine; Visit Provider Family Medicine | DX: Z98.84 Bariatric surgery status (principal); Z79.899 Other long term (current) drug therapy | CPT/HCPCS: 80048; 82607; 84134; 84630 ==

== ENCOUNTER 2023-05-20 13:27 | Outpatient (CLI) | payer MEDICARE, SELFPAY ==
--- NOTE | 2023-05-20 13:35 | MM_ITS ---
WS: [id number] BILATERAL 3D TOMOSYNTHESIS DIGITAL DIAGNOSTIC MAMMOGRAPHY WITH CAD CLINICAL INFORMATION: 6[facility] HISTORY: Six-month follow-up. Prior biopsy. COMPARISON: April 10, 2022 TECHNIQUE: Bilateral CC, MLO, and ML views. FINDINGS: Scattered fibroglandular densities bilaterally. Again seen is the 11 mm ovoid nodule measuring 11 x 9 mm unchanged anterior LEFT breast. Adjacent biopsy clip. Ultrasound described below. Prior ultrasoun d-guided biopsy from March 14, 2021 demonstrated benign breast tissue with fibrocystic changes and st romal sclerosis. ULTRASOUND BREAST LEFT TECHNIQUE: Ultrasound left breast focused area of concern. CLINICAL INFORMATION: 6[facility] COMPARISON: , April 26, 2022, March 14, 2021 FINDINGS: Ultrasound 4:00 position 2 cm from the nipple. Again seen is the hypoechoic taller than wide shadowin g lesion unchanged from previous today measuring 0.8 x 0.65 x 0.64 cm. This was previously biopsied a nd demonstrated to represent benign breast tissue with fibrocystic changes and stromal sclerosis. Thi s is also unchanged appearance since March 02, 2021. MM/[place] [id number] IMPRESSION: BI-RADS: 3-Probably Benign FOLLOW UP: 6 Month Follow-up Recommend additional LEFT breast diagnostic mammography and ultrasound at the [facility] of annual screening mammography in 6 months to document 2-3 year stability
== END 2023-05-20 13:28 | disposition home or self-care (01) ==
PROVIDERS: PCP Family Medicine; Visit Provider Family Medicine
DX: R92.8 Other abnormal and inconclusive findings on diagnostic imaging of breast (principal); N60.12 Diffuse cystic mastopathy of left breast
CPT/HCPCS: 76642; 77062; G0279

== ENCOUNTER 2023-07-23 07:30 | Emergency (ER) | payer MEDICARE, SELFPAY ==
--- NOTE | 2023-07-23 08:11 | W.ED.UPPEXIN ---
HPI - Extremity Injury (Upper) General: Chief Complaint: Extremity Injury, Upper Stated Complaint: fall/ Left hand injury Time Seen by Provider: 07/23/23 07:34 Source: patient Mode of arrival: ambulatory Limitations: no limitations History of Present Illness: Patient is a 67-year-old female with history of carpal tunnel syndrome who presents to the emergency department complaining of left hand pain status post fall this morning. She states she was walking into the [employer] to swim, when she tripped on a crack in the concrete and fell forward, catching herself and putting all of her weight onto her left hand. She denies any other injuries in the fall and states that her left hand supported her entire weight when she had the ground. The pain is primarily to the dorsal aspect of her left hand and radiates minimally towards the distal left wrist. The pain is currently an 8/10 and she denies any other injuries, including no head injuries. She denies any symptoms preceding the fall. She does state that she has had a prior carpal tunnel release procedure to both wrists. MD complaint: injury to: left, wrist and hand Onset (ago): hour(s) Other Extremity Injury: Left: hand and wrist Other injuries: none Place: outdoors Severity: severe Severity scale (1-10): 8 Relieving factors: other (Elevating the hand) Exacerbating factors: movement of extremity Context: fall Associated symptoms: Reports no associated symptoms; Denies neck pain or weakness in extremities Review of Systems Const: Reports: other (Fall); Denies: fever(s) or chills Eyes: Denies: change in vision or blurry vision Card: Denies: chest pain, palpitations, irregular heart rhythm, lightheadedness, syncope or dyspnea on exertion Resp: Denies: dyspnea, productive cough or pain on inspiration GI: Denies: abdominal pain, nausea, vomiting, heartburn or diarrhea : Denies: dysuria Musc: Reports: extremity pain (Left hand) and joint pain (Left wrist); Denies: neck pain, back pain, extremity swelling, joint swelling, joint redness, joint warmth or limited range of motion Skin/Breast: Denies: rash Neuro: Denies: headache(s), numbness in extremities, weakness in extremities or sensory changes PFSH ED PFSH: Medical History Atherosclerosis Cholelithiasis GERD (gastroesophageal reflux disease) Hiatal hernia Hypercholesterolemia Hypertension Hypothyroidism Iron deficiency Lipoma of lateral chest wall left Liver cyst Obesity Osteoarthritis of right shoulder Osteoporosis Splenic cyst Ventral hernia Vitamin D deficiency Surgical History History of arthroscopy of left knee History of carpal tunnel release Right 10/2016 and 07/2016 Left History of cervical spinal surgery (1987) Laminectomy C5-6 History of section 2x History of D&C 2x History of gastric bypass sleeve gastrectomy History of hernia repair umbilical & ventral hernia History of hysterectomy History of lumbosacral spine surgery L4-5 fusion History of rhinoplasty Repair Dev. Septum History of tonsillectomy and adenoidectomy History of total right knee replacement Family History Mother Hypertension Hypercholesterolemia Cancer renal CHF (congestive heart failure) Father Hypertension Hypercholesterolemia Alcohol abuse Cancer colon, leukemia Depression Denies family history of Diabetes CAD (coronary artery disease) Anesthesia complication Bleeding disorder Stroke Social History Smoking and tobacco status: former smoker Quit status (tobacco): has quit using tobacco Year quit tobacco: 1992 Second hand smoke exposure: Yes Alcohol intake: former Substance/Drug Use: never Adopted: No Caregiver/support person: Yes Lives independently: Yes Household members: spouse Housing: House Marital status: Number of children: 2 Number of grandchildren: 3 Highest education level completed: High School Graduate service: No Current occupational status: retired Leisure activites: exercise and volunteer work Do you think of yourself as: Straight/Heterosexual Current gender identity: Female Minal/Sabianist: Quaker Agree to transfusion: Yes Physical Exam Const: COMMON NORMALS: no acute distress, patient oriented x3, no limitations, healthy appearing, alert and well nourished GENERAL APPEARANCE: cooperative ORIENTATION/CONSCIOUSNESS: Yes awake, Yes oriented to person, Yes oriented to place and Yes oriented to time HENMT: COMMON NORMALS: normocephalic and atraumatic HEAD & SCALP: normal to inspection, normocephalic and atraumatic Neck/C-Spine: COMMON NORMALS: full ROM CERVICAL SPINE: No Cervical spine tenderness Back/Pelvis: COMMON NORMALS: thoracic and lumbar spine normal to inspection, no thoracic nor lumbar tenderness and thoraco-lumbar ROM normal Extremity: COMMON NORMALS: capillary refill normal GENERAL: Yes normal exam except as noted LEFT UPPER EXTREMITY: Yes wrist Left wrist: Yes inspection (Area of bruising to the volar aspect, likely from patient's watch), Yes palpation (No tenderness to palpation of the distal radius or ulna), Yes ROM (Good range of motion of the wrist) and Yes neurovascular exam (Neurovascularly intact) and Yes hand & digits Left hand and digits: Yes palpation (Mild to moderate tenderness to palpation over the dorsal aspect of the hand), Yes ROM (Range of motion limited due to pain) and Yes neurovascular exam (No distal neurovascular) Neuro: COMMON NORMALS: patient oriented x3, moves all extremities, no focal motor deficits and no sensory deficits noted SENSORIUM/ORIENTATION: Yes alert, Yes oriented to person, Yes oriented to place and Yes oriented to time Skin: COMMON NORMALS: no rashes or lesions noted GENERAL SKIN EXAM: no rashes or lesions noted TRAUMA: no lacerations or abrasions Course Vital Signs: Vital signs: Vital Signs Temperature 98.6 F 07/23/23 08:15 Pulse Rate 67 07/23/23 08:15 Blood Pressure 184/69 07/23/23 08:15 Pulse Oximetry 97 07/23/23 08:15 Oxygen Delivery Me thod Room Air 07/23/23 08:15 MDM - Extremity Injury (Upper) Medical Decision Making Personal interpretation of patient's XR wrist is normal. XR right hand showed questionable avulsion fractures at the PIP joint of her third digit as well as near her third MCP joint however clinically she does not have any point tenderness here. Radiologist felt that these were more arthritic changes. At this time we will treat patient conservatively. Recommend follow-up with primary care and repeat imaging in approximately 7 to 10 days if pain persists. Discharge Plan Discharge Patient Disposition: Home Clinical Impression: Fall from slip, trip, or stumble Qualifiers: Encounter type: initial encounter Qualified Code(s): W01.0XXA - Fall on same level from slipping, tripping and stumbling without subsequent striking against object, initial encounter Injury of hand, left Qualifiers: Encounter type: initial encounter Qualified Code(s): S69.92XA - Unspecified injury of left wrist, hand and finger(s), initial encounter Condition: Stable Prescriptions: No Action calcium citrate-vitamin D3 315 mg-6.25 mcg (250 unit) tablet 3 tab PO QDAY [employer] 1.5 billion cell capsule 1 cap PO QDAY omega-3 fatty acids [Fish Oil Concentrate] 1,000 mg capsule 1,000 mg PO QDAY Prolia 60 mg/mL syringe 60 mg SUBCUT .[id number] Qty: 1 0RF fluticasone propionate [Flonase Allergy Relief] 50 mcg/actuation spray,suspension 1 spray intranasal DAILY Rx Instructions: administer into each nostril fexofenadine [Kassi Allergy] 180 mg tablet 180 mg PO DAILY melatonin 5 mg tablet 5 mg PO DAILY diclofenac sodium [Voltaren Arthritis Pain] 1 % gel 2 g topical QID PRN (Reason: arthritis) Qty: 100 0RF Rx Instructions: apply to joint swollen areas of hands propranolol 40 mg tablet 20 mg PO BID Qty: 90 0RF Rx Instructions: PM omeprazole 20 mg capsule,delayed release(DR/EC) 20 mg PO BID Qty: 180 0RF levothyroxine 50 mcg capsule 50 mcg PO QDAY Qty: 90 0RF hydrochlorothiazide 12.5 mg tablet See Rx Instructions .ROUTE .COMPLEX Qty: 90 0RF Rx Instructions: alternate daily ONCE 12.5mg and 6.25mg lovastatin 40 mg tablet 10 mg PO QDAY Qty: 90 0RF celecoxib 200 mg capsule 200 mg PO BID Qty: 180 0RF Discharge Orders: Discharge ED (Routine); Ordered 07/23/23 Ordered By: Jessica Winston Referrals: Sierra Blanchard MD [Primary Care Provider] - Patient Instructions: Hand Sprain (ED) Activity Restrictions/Additional Instructions: As we discussed the radiologist read your hand and wrist films as negative. You may use abcr-vra-sksllev pain medication as needed for discomforts. Continue to ice and elevate extremity. Please follow-up with your primary care provider in 1 week if you continue to have pain. Coding Level of Care Code ED [employer] for [facility]
[2023-07-23 08:15] VITALS: BP 184/69; PULSE 67; TEMP 37; O2SAT 97; BMI 36.9
--- NOTE | 2023-07-23 08:19 | XR_ITS ---
WS: [email or web address] Exam: XR hand LT min 3V* [id number] Date/Time of Exam: 07/23/2023 8:21 AM Reason For Exam: fall/hand pain Comparison 05/20/2015. No fracture or dislocation. No soft tissue foreign bodies are seen. Degenerative narrowing of the thi rd MP joint. Marked DJD at the CMC joint of the thumb. IMPRESSION: 1. Degenerative changes. No fracture noted.
--- NOTE | 2023-07-23 08:19 | XR_ITS ---
WS: [email or web address] Exam: XR wrist LT min 3V* [id number] Date/Time of Exam: 07/23/2023 8:22 AM Reason For Exam: fall/wrist pain No fracture or dislocation. Degenerative change of the radiocarpal joint. Moderately advanced DJD at the CMC joint of the thumb. Normal soft tissues. IMPRESSION: 1. Moderate degenerative changes. No fracture noted.
[2023-07-23] MEDS: morphine 4 mg/mL SDV 1 mL IM (08:30)
== END 2023-07-23 09:39 | disposition home or self-care (01) ==
PROVIDERS: Emergency Provider Physician Assistant; PCP Family Medicine
DX: S69.92XA Unspecified injury of left wrist, hand and finger(s), initial encounter (principal); Z87.891 Personal history of nicotine dependence; I10 Essential (primary) hypertension; W01.0XXA Fall on same level from slipping, tripping and stumbling without subsequent striking against object, initial encounter; Y92.29 Other specified public building as the place of occurrence of the external cause
CPT/HCPCS: 73110; 73130; 96372; 99284; J2270

== ENCOUNTER 2023-09-19 12:30 | Outpatient (CLI) | payer MEDICARE, SELFPAY ==
--- NOTE | 2023-09-19 12:45 | XR_ITS ---
WS: [id number] Exam: XR hand LT min 3V* [id number] Date/Time of Exam: 09/19/2023 12:50 PM Reason For Exam: conitnued pain after fall in jun, prior xr in chart No fracture or dislocation. Moderately advanced degenerative change at the CMC joint of the thumb and the first and third MP joints. Soft tissues are unremarkable. IMPRESSION: 1. No fracture or dislocation. 2. Degenerative changes as detailed above.
== END 2023-09-19 12:31 | disposition home or self-care (01) ==
LOC: RAD 12:34
PROVIDERS: PCP Family Medicine; Visit Provider Family Medicine
DX: M79.642 Pain in left hand (principal); E03.9 Hypothyroidism, unspecified; E78.00 Pure hypercholesterolemia, unspecified; Z91.81 History of falling
CPT/HCPCS: 73130; 80048; 80061; 84443

== ENCOUNTER 2023-12-12 08:03 | Outpatient (CLI) | payer MEDICARE, SELFPAY ==
--- NOTE | 2023-12-12 08:07 | MM_ITS ---
WS: [id number] LEFT 3D TOMOSYNTHESIS DIGITAL MAMMOGRAPHY WITH CAD CLINICAL INFORMATION: 6 mon f/u HISTORY: 6-month follow-up COMPARISON: 05/20/2023. Multiple prior comparisons dating back to 03/02/2021 TECHNIQUE: 5 views of the left breast were obtained. FINDINGS: Scattered fibroglandular densities of the left breast. Incidental punctate calcifications. Biopsy cli p LEFT breast. Previously described 9 mm ovoid nodule adjacent to the biopsy clip is stable. No new f indings. Ultrasound described below. Prior ultrasound-guided biopsy from March 14, 2021 demonstrated benign breast tissue with fibrocystic changes and stromal sclerosis. ULTRASOUND BREAST LEFT TECHNIQUE: Ultrasound left breast focused area of concern. CLINICAL INFORMATION: 6 mon f/u COMPARISON: 05/20/2023, 10/30/2022, 04/26/2022, and 03/14/2021 FINDINGS: Ultrasound LEFT breast at the 4 o'clock position 2 cm from the nipple. Again seen is the hypoechoic t aller than wide shadowing lesion today measuring 7.6 x 6.9 x 7.7 mm stable compared to the prior stud ies. This measures slightly smaller today. Area was previously biopsied and demonstrated to represent benign breast tissue with fibrocystic changes and stromal sclerosis. This is also unchanged appearan ce since March 02, 2021. IMPRESSION: MM/[place] [id number] BI-RADS: 2-Benign FOLLOW UP: 1 Year Follow-up Recommend return to annual screening mammography.
--- NOTE | 2023-12-12 09:00 | US_ITS ---
WS: [id number] LEFT 3D TOMOSYNTHESIS DIGITAL MAMMOGRAPHY WITH CAD CLINICAL INFORMATION: 6 mon f/u HISTORY: 6-month follow-up COMPARISON: 05/20/2023. Multiple prior comparisons dating back to 03/02/2021 TECHNIQUE: 5 views of the left breast were obtained. FINDINGS: Scattered fibroglandular densities of the left breast. Incidental punctate calcifications. Biopsy cli p LEFT breast. Previously described 9 mm ovoid nodule adjacent to the biopsy clip is stable. No new f indings. Ultrasound described below. Prior ultrasound-guided biopsy from March 14, 2021 demonstrated benign breast tissue with fibrocystic changes and stromal sclerosis. ULTRASOUND BREAST LEFT TECHNIQUE: Ultrasound left breast focused area of concern. CLINICAL INFORMATION: 6 mon f/u COMPARISON: 05/20/2023, 10/30/2022, 04/26/2022, and 03/14/2021 FINDINGS: Ultrasound LEFT breast at the 4 o'clock position 2 cm from the nipple. Again seen is the hypoechoic t aller than wide shadowing lesion today measuring 7.6 x 6.9 x 7.7 mm stable compared to the prior stud ies. This measures slightly smaller today. Area was previously biopsied and demonstrated to represent benign breast tissue with fibrocystic changes and stromal sclerosis. This is also unchanged appearan ce since March 02, 2021. IMPRESSION: US/US breast LT limited* [id number] BI-RADS: 2-Benign FOLLOW UP: 1 Year Follow-up Recommend return to annual screening mammography.
== END 2023-12-12 08:04 | disposition home or self-care (01) ==
LOC: RAD 08:03
PROVIDERS: PCP Family Medicine; Visit Provider Family Medicine
DX: R92.8 Other abnormal and inconclusive findings on diagnostic imaging of breast (principal)
CPT/HCPCS: 76642; 77061; G0279

== ENCOUNTER → 2024-02-03 15:26 | Outpatient (BNVA) | payer MEDICARE, SELFPAY | PROVIDERS: PCP Family Medicine; Visit Provider Specialist | DX: M19.011 Primary osteoarthritis, right shoulder | CPT/HCPCS: 20610; 73030; 99204 ==

== ENCOUNTER → 2024-02-20 08:16 | Outpatient (BNVA) | payer MEDICARE, SELFPAY | PROVIDERS: PCP Family Medicine; Visit Provider Internal Medicine | DX: M81.0 Age-related osteoporosis without current pathological fracture (principal); E55.9 Vitamin D deficiency, unspecified; Z79.84 Long term (current) use of oral hypoglycemic drugs | CPT/HCPCS: 36415; 82306; 99214 ==

== ENCOUNTER 2024-03-30 10:45 | Oncology outpatient (recurring) (ONCR) | payer MEDICARE, SELFPAY ==
[2024-03-30 11:05] VITALS: BP 109/70; PULSE 67; RESP 16; O2SAT 98
[2024-03-30] MEDS: denosumab 60 mg SDV SUBCUT (11:15)
[2024-03-30 11:45] LABS: Calcium 9.5 mg/dL (8.5-10.5)
== END 2024-04-24 23:59 | disposition home or self-care (01) ==
LOC: ONCMED 10:46
PROVIDERS: Internal Medicine; PCP Family Medicine; Visit Provider Internal Medicine Medical Oncology
DX: M81.0 Age-related osteoporosis without current pathological fracture (principal)
CPT/HCPCS: 36415; 82310; 96372; J0897

== ENCOUNTER → 2024-05-08 08:43 | Outpatient (BNVA) | payer MEDICARE, SELFPAY | PROVIDERS: PCP Family Medicine; Visit Provider Specialist | DX: M19.011 Primary osteoarthritis, right shoulder (principal) | CPT/HCPCS: 20610; J1100; J2795; J3301 ==

== ENCOUNTER → 2024-06-01 08:40 | Outpatient (BNVA) | payer MEDICARE, SELFPAY | PROVIDERS: PCP Family Medicine; Visit Provider Family Medicine | DX: I10 Essential (primary) hypertension (principal); E03.9 Hypothyroidism, unspecified; E78.00 Pure hypercholesterolemia, unspecified; Z98.84 Bariatric surgery status; K21.9 Gastro-esophageal reflux disease without esophagitis; M19.011 Primary osteoarthritis, right shoulder; M81.0 Age-related osteoporosis without current pathological fracture | CPT/HCPCS: 80053; 80061; 82607; 84443; 85025 ==

== ENCOUNTER → 2024-06-15 08:50 | Outpatient (BNVA) | payer MEDICARE, SELFPAY | PROVIDERS: PCP Family Medicine; Visit Provider Specialist | DX: M19.011 Primary osteoarthritis, right shoulder (principal) | CPT/HCPCS: 73030; 99214 ==

== ENCOUNTER 2024-06-19 12:45 | Outpatient (CLI) | payer MEDICARE, SELFPAY ==
--- NOTE | 2024-06-19 13:00 | XR_ITS ---
WS: [id number] DEXA (DUAL ENERGY X-RAY ABSORPTIOMETRY) Bone mineral density was performed using a digitalbox machine. HISTORY: osteoporosis COMPARISON: 06/18/2022 Left forearm BMD: 0.926 g/cm2. T score: 0.6 Z score: 2.4 Total hip BMD: Left: 1.012 g/cm2. T score: 0.0 Z score: 0.9 Right: 1.097 g/cm2. T score: 0.7 Z score: 1.5 10 year probability of a major osteoporotic fracture is 8.0%. Compared to the prior study from 06/18/2022. LEFT forearm bone mineral density has increased by 2.5%. Bilateral hips bone mineral density has increased by 2.0%. XR/XR DEXA axial skeleton* [id number] IMPRESSION: NORMAL BONE MINERAL DENSITY based upon the WHO classification for females. Significant increase in bone mineral density within the hips and LEFT forearm s anna the prior study.
== END 2024-06-19 12:46 | disposition home or self-care (01) ==
LOC: RAD 12:50
PROVIDERS: PCP Family Medicine; Visit Provider Internal Medicine
DX: Z13.820 Encounter for screening for osteoporosis (principal); M81.0 Age-related osteoporosis without current pathological fracture
CPT/HCPCS: 77080

== ENCOUNTER 2024-07-14 08:53 | Outpatient (CLI) | payer MEDICARE, SELFPAY ==
[2024-07-14 09:56] LABS: 25 Hydroxy Vitamin D 34 ng/mL (30-100)
== END 2024-07-14 08:54 | disposition home or self-care (01) ==
LOC: LAB 08:55
PROVIDERS: PCP Family Medicine; Visit Provider Internal Medicine
DX: Z98.84 Bariatric surgery status (principal); E55.9 Vitamin D deficiency, unspecified
CPT/HCPCS: 36415; 82306

== ENCOUNTER → 2024-07-21 08:40 | Outpatient (BNVA) | payer MEDICARE, SELFPAY | PROVIDERS: PCP Family Medicine; Visit Provider Internal Medicine | DX: Z98.84 Bariatric surgery status (principal); M81.0 Age-related osteoporosis without current pathological fracture; E55.9 Vitamin D deficiency, unspecified | CPT/HCPCS: 99214 ==

== ENCOUNTER 2024-07-23 07:40 | Outpatient (CLI) | payer MEDICARE, SELFPAY ==
--- NOTE | 2024-07-23 08:00 | MR_ITS ---
WS: [id number] MRI RIGHT SHOULDER HISTORY: right shoulder pain COMPARISON: Radiograph 06/13/2024 TECHNIQUE: Multiplanar sequences of the shoulder joint are submitted. Mild AC joint arthritis. Narrowing of the joint space with small osteophytes. There is marked subacro mial impingement. There is a moderate size osteophyte from the distal undersurface of the acromion ne mick contacting the humeral head. Moderate fluid in the subacromial subdeltoid bursa. No os acromion. Biceps tendon is abnormal. There is a very small caliber biceps tendon in the bicipital groove surro unded by fluid. Increased T2 signal within the biceps tendon. Extracapsular tendon appears normal. Marked narrowing of the glenohumeral joint. Osteophytic ridging around the humeral head and the gleno id. Loss of the cartilage surrounding the humeral head with an irregular cortical surface. Mild atrop hy of the rotator cuff muscles, most significant involving the supraspinatus muscle. No edema. Subcap sular joint recess bursal distention. Complete tear of the supraspinatus tendon. Tendon is retracted just medial to the subacromial impinge ment. Distal subscapularis tendon is mildly thickened with increased signal. Poor definition of the d istal fibers beyond the coracohumeral interval. Infraspinatus tendon appears to be intact with tendin opathy. Diffuse degenerative changes involving the labrum. Anterior labrum is torn. Inferior labrum i s not identified. MR/MR shoulder RT wo con* [id number] IMPRESSION: 1. Advanced degenerative changes at the shoulder. 2. High riding humeral head with marked subacromial impingement. 3. Torn retracted supraspinatus tendon. Tendon retracted just medial to the nathan bacromial impingement. 4. Marked tendinopathy in the distal subscapularis and infraspinatus tendons. 5. Moderate size joint effusion. 6. Moderate subacromial and subdeltoid bursal distention. 7. Marked narrowing the glenohumeral joint with osteophytic ridging. 8. Abnormal appearance of the anterior and inferior labrum consistent with tea rs.
== END 2024-07-23 07:41 | disposition home or self-care (01) ==
LOC: RAD 07:41
PROVIDERS: PCP Family Medicine; Visit Provider Specialist
DX: M19.011 Primary osteoarthritis, right shoulder (principal); M75.121 Complete rotator cuff tear or rupture of right shoulder, not specified as traumatic; M75.31 Calcific tendinitis of right shoulder; M25.411 Effusion, right shoulder; M75.51 Bursitis of right shoulder; M25.711 Osteophyte, right shoulder
CPT/HCPCS: 73221

== ENCOUNTER → 2024-07-29 07:48 | Outpatient (BNVA) | payer MEDICARE, SELFPAY | PROVIDERS: PCP Family Medicine; Visit Provider Specialist | DX: M19.011 Primary osteoarthritis, right shoulder (principal) | CPT/HCPCS: 20610; 99214; J1100; J2795; J3301 ==

== ENCOUNTER 2024-10-05 12:39 | Outpatient (CLI) | payer MEDICARE, SELFPAY ==
--- NOTE | 2024-10-05 12:43 | XRR_ITS ---
PROCEDURE INFORMATION: Exam: XR Lumbosacral Spine Exam date and time: 10/05/2024 12:52 PM Age: 69 years old Clinical indication: Low back pain; Additional info: Lumbar radiculopathy with increased weakness TECHNIQUE: Imaging protocol: Radiologic exam of the lumbosacral spine. Views: 2 or 3 views. Total images: 3 COMPARISON: CT abdomen pelvis w con* [id number] 01/25/2020 2:49 PM FINDINGS: Bones/joints: L4-L5 Posterior spinal fusion and laminectomy noted. Rods and pedicle screws are in place and there is no evidence of hardware failure. Disc spacer appears appropriately positioned. Residual grade 1 spondylolisthesis of L4 on L5 similar to prior exam. L3-L4 Degenerative spondylolisthesis (grade 1-2) is seen with disc space height loss and degenerative changes in the facet joints. This was not seen on the prior exam. L5-S1 Degenerative spondylolisthesis (grade 1) is seen with disc space height loss and degenerative changes in the facet joints. This finding is stable when compared to the prior exam. Degenerative disc disease changes noted in the lower thoracic spine. Soft tissues: Unremarkable. Vasculature: Moderate atherosclerotic disease burden is evident. XR/XR lumbar spine 2-3V* [id number] IMPRESSION: 1. L4-L5 Posterior spinal fusion and laminectomy noted. Rods and pedicle screws are in place and there is no evidence of hardware failure. Disc spacer appears appropriately positioned. Residual grade 1 spondylolisthesis of L4 on L5 similar to prior exam. 2. L3-L4 Degenerative spondylolisthesis (grade 1-2) is seen with disc space height loss and degenerative changes in the facet joints. This was not seen on the prior exam. 3. L5-S1 Degenerative spondylolisthesis (grade 1) is seen with disc space height loss and degenerative changes in the facet joints. This finding is stable when compared to the prior exam.
== END 2024-10-05 12:40 | disposition home or self-care (01) ==
LOC: RAD 12:40
PROVIDERS: PCP Family Medicine; Visit Provider Family Medicine
DX: M54.16 Radiculopathy, lumbar region (principal); M43.26 Fusion of spine, lumbar region; M43.16 Spondylolisthesis, lumbar region; M51.34 Other intervertebral disc degeneration, thoracic region; M20.41 Other hammer toe(s) (acquired), right foot; M79.671 Pain in right foot
CPT/HCPCS: 72100; 73630

== ENCOUNTER → 2024-10-07 10:12 | Outpatient (BNVA) | payer MEDICARE, SELFPAY | PROVIDERS: PCP Family Medicine; Visit Provider Family Medicine | DX: Z98.84 Bariatric surgery status (principal); M81.0 Age-related osteoporosis without current pathological fracture | CPT/HCPCS: 82306; 82310 ==

== ENCOUNTER → 2024-10-14 09:19 | Outpatient (BNVA) | payer MEDICARE, SELFPAY | PROVIDERS: PCP Family Medicine; Visit Provider Specialist | DX: M25.512 Pain in left shoulder (principal); M19.012 Primary osteoarthritis, left shoulder | CPT/HCPCS: 73030; 99214 ==

== ENCOUNTER → 2024-10-30 10:05 | Outpatient (BNVA) | payer MEDICARE, SELFPAY | PROVIDERS: PCP Family Medicine; Visit Provider Specialist | DX: M19.011 Primary osteoarthritis, right shoulder (principal); Z71.89 Other specified counseling | CPT/HCPCS: 20610; J1100; J2795; J3301 ==

== ENCOUNTER 2024-11-13 11:00 | Oncology outpatient (recurring) (ONCR) | payer MEDICARE, SELFPAY ==
[2024-11-05] MEDS: denosumab 60 mg SDV SUBCUT (14:30)
--- NOTE | 2024-11-13 11:00 | MR_ITS ---
WS: [id number] MRI LEFT SHOULDER HISTORY: Chronic worsening shoulder pain. No injury. COMPARISON: Radiograph 10/14/2024 TECHNIQUE: Multiplanar sequences of the shoulder joint are submitted. Moderate AC joint arthritis. Osteophytic ridging around the distal clavicle and acromion. Small subch ondral cysts. Small amount of fluid in the subacromial and subdeltoid bursa. Mild subacromial impinge ment. Biceps tendon is noted in the bicipital groove. No os acromion. Severe glenohumeral joint narrowing with a slightly high riding humeral head. Subchondral cystic esquivel ges along the posterolateral humeral head and glenoid. Marked thickening of the distal supraspinatus tendon. There is mild supraspinatus atrophy but no tear is identified. Distal subscapularis tendinopa thy. No infraspinatus tear. Intrasubstance degeneration in the labrum. No labral tear. MR/MR shoulder LT wo con* [id number] IMPRESSION: 1. Moderate AC joint arthritis with osteophyte encroachment upon the supraspin atus. 2. No rotator cuff tear. 3. Severe tendinopathy in the distal supraspinatus tendon. 4. Biceps tendon in normal position at the bicipital groove. 5. Severe glenohumeral joint space narrowing with subchondral cystic changes i n the glenoid and the humeral head.
== END 2024-11-24 23:59 | disposition home or self-care (01) ==
LOC: RAD 11-14 00:01 → ONCMED 11-16 09:55
PROVIDERS: PCP Family Medicine; Visit Provider Specialist
DX: M19.012 Primary osteoarthritis, left shoulder (principal); Z53.9 Procedure and treatment not carried out, unspecified reason; M67.814 Other specified disorders of tendon, left shoulder
CPT/HCPCS: 73221; 96377; J0897

== ENCOUNTER → 2024-11-30 10:34 | Outpatient (BNVA) | payer MEDICARE, SELFPAY | PROVIDERS: PCP Family Medicine; Visit Provider Specialist | DX: M19.012 Primary osteoarthritis, left shoulder; M19.011 Primary osteoarthritis, right shoulder | CPT/HCPCS: 20610; 99215; J1100; J2795; J3301 ==

== ENCOUNTER 2024-12-14 10:01 | Outpatient (CLI) | payer MEDICARE, SELFPAY ==
--- NOTE | 2024-12-14 10:03 | MM_ITS ---
WS: [id number] BILATERAL SCREENING DIGITAL TOMOSYNTHESIS MAMMOGRAM WITH CAD HISTORY: SCREENING COMPARISON: 12/12/2023, 05/20/2023 Bilateral CC and MLO views with tomosynthesis and synthetic mammography submitted. Computer aided det ection analyzed. Breast composition: There are scattered areas of fibroglandular density. No suspicious masses, microc alcifications or architectural distortion. Benign scattered calcifications within each breast. MM/MM scr BI tomosynthesis [id number] IMPRESSION: BI-RADS: 2 - Benign. FOLLOW UP: 1 Year Follow-up
== END 2024-12-14 10:02 | disposition home or self-care (01) ==
LOC: RAD 10:01
PROVIDERS: PCP Family Medicine; Visit Provider Family Medicine
DX: Z12.31 Encounter for screening mammogram for malignant neoplasm of breast (principal); R92.323 Mammographic fibroglandular density, bilateral breasts; R92.1 Mammographic calcification found on diagnostic imaging of breast
CPT/HCPCS: 77063; 77067

== ENCOUNTER → 2025-02-05 10:21 | Outpatient (BNVA) | payer MEDICARE, SELFPAY | PROVIDERS: PCP Family Medicine; Visit Provider Specialist | DX: M19.011 Primary osteoarthritis, right shoulder (principal); Z71.89 Other specified counseling | CPT/HCPCS: 20610; J1100; J2795; J3301; J9999 ==

== ENCOUNTER 2025-02-19 13:37 | Emergency (ER) | payer MEDICARE, SELFPAY ==
[2025-02-19 13:56] VITALS: BP 125/82; PULSE 59; RESP 16; TEMP 36.2; O2SAT 96; BMI 36.8
--- NOTE | 2025-02-19 16:30 | ED_ITS ---
HPI - Wound/Laceration General: Chief Complaint: Wound/Laceration Stated Complaint: rt ring finger lac Time Seen by Provider: 02/19/25 14:05 Source: patient Mode of arrival: ambulatory Limitations: no limitations History of Present Illness: Patient is a 72-year-old female who presents to the ED today for a laceration to the right ring finger that she sustained after she was pulling plastic/saran wrap and accidentally cut it on the serrated edge. Last tetanus unknown. Onset (ago): hour(s) Extremity Location: Right: hand (finger) Place: home Context: accidental Associated symptoms: Reports no associated symptoms Related Data Home Medications ?Medication ?Instructions ?Recorded ?Confirmed Lactobacills gasseri-Bifidobac 1 cap PO QDAY 12/22/19 02/05/25 bifidum,longum 1.5 billion cell capsule (Synapticon) omega-3 fatty acids 1,000 mg 1,000 mg PO QDAY 12/22/19 02/05/25 capsule (Fish Oil Concentrate) calcium 315 mg (as 3 tab PO QDAY 03/05/2302/05 citrate)-vitamin D3 6.25 mcg (250 unit) tablet fexofenadine 180 mg tablet 180 mg PO DAILY 03/05/23 (Kassi Allergy) fluticasone propionate 50 1 spray intranasal DAILY 10/1702/05/25 mcg/actuation nasal spray,suspension (Flonase Allergy Relief) melatonin 5 mg tablet 5 mg PO DAILY 03/05/2302/05 acetaminophen 500 mg tablet 500 mg PO BID PRN 10/30/24 02/05/25 Previous Rx's ?Medication ?Instructions ?Recorded diclofenac sodium 1 % topical gel 2 g topical QID PRN arthritis #100 06/12/22 (Voltaren Arthritis Pain) grams denosumab 60 mg/mL subcutaneous See Rx Instructions .R oute 03/06/24 syringe ([employer]) .COMPLEX #1 mL AFO to right-gauntlet style #1 ea 10/05/24 lovastatin 10 mg tablet 10 mg PO QDAY #90 tabs 10/19 omeprazole 20 mg capsule,delayed See Rx Instructions . Route 10/19/24 release .COMPLEX #180 caps propranolol 20 mg tablet 20 mg PO BID #180 tabs 10/19 hydrochlorothiazide 12.5 mg tablet See Rx Instructions .Route 01/18/25 .COMPLEX #68 tabs levothyroxine 50 mcg tablet 50 mcg PO DAILY #90 tabs 0 01/18/25 metronidazole 0.75 % topical cream 1 applic topical BI D #45 grams 01/20/25 celecoxib 200 mg capsule See Rx Instructions .Route 0 02/15/25 .COMPLEX #180 caps Allergies Allergy/AdvReac Type Severity Reaction Status Date / Time nickel Allergy Mild ALGY-Rash Verified 02/19/25 14:04 amlodipine Allergy Unknown Unknown Verified 02/19/25 14:04 tramadol Allergy Unknown Unknown Verified 02/19/25 14:04 pantoprazole AdvReac Mild ADR-Diarrhe Verified 02/19/25 14:04 a cephalexin (From Keflex) AdvReac Yeast Verified 02/19/25 14:04 enalapril AdvReac ADR-Cough Verified 02/19/25 14:04 lisinopril AdvReac ADR-Cough Verified 02/19/25 14:04 Review of Systems Musc: Reports: extremity pain Skin/Breast: Reports: other (laceration R finger) Neuro: Denies: numbness in extremities or sensory changes PFSH ED PFSH: Medical History Osteoarthritis of right shoulder Atherosclerosis Splenic cyst Liver cyst Hiatal hernia Cholelithiasis Lipoma of lateral chest wall left Osteoporosis Ventral hernia Obesity Iron deficiency Vitamin D deficiency GERD (gastroesophageal reflux disease) Hypothyroidism Hypertension Hypercholesterolemia Surgical History History of lumbosacral spine surgery L4-5 fusion History of total right knee replacement History of hysterectomy History of gastric bypass sleeve gastrectomy History of hernia repair umbilical & ventral hernia History of arthroscopy of left knee History of D&C 2x History of rhinoplasty Repair Dev. Septum History of tonsillectomy and adenoidectomy History of cervical spinal surgery (1987) Laminectomy C5-6 History of section 2x History of carpal tunnel release Right 10/2016 and 07/2016 Left Family History Mother Hypertension Hypercholesterolemia Cancer renal Congestive heart failure (CHF) Father Hypertension Hypercholesterolemia Alcohol abuse Cancer colon, leukemia Depression Denies family history of Diabetes CAD (coronary artery disease) Anesthesia complication Bleeding disorder Stroke Social History Smoking and tobacco/nicotine status: never used tobacco/nicotine Quit status (tobacco/nicotine): has quit using Year quit tobacco: 1992 Second hand smoke exposure: Yes Alcohol intake: former Substance/Drug Use: never Adopted: No Caregiver/support person: Yes Lives independently: Yes Household members: spouse Housing: House Marital status: Number of children: 2 Number of grandchildren: 3 Highest education level completed: High School Graduate service: No Current occupational status: retired Leisure activites: exercise and volunteer work Do you think of yourself as: Straight/Heterosexual Current gender identity: Female Minal/Quaker: Anabaptist Agree to transfusion: Yes Physical Exam Const: COMMON NORMALS: no acute distress, no limitations, healthy appearing, alert and well nourished Extremity: COMMON NORMALS: full ROM and capillary refill normal GENERAL: Yes normal exam except as noted RIGHT UPPER EXTREMITY: Yes hand & digits (small 1cm laceration volar R PIP joint; no tendon/bone involvement ) Right hand and digits: Yes ROM exam (normal), Yes neurovascular exam (normal) and Yes tendon exam (normal) Neuro: SENSORIUM/ORIENTATION: Yes alert Course Vital Signs: Vital signs: Vital Signs Temperature 97.2 F L 02/19/25 13:56 Pulse Rate 59 L 02/19/25 13:56 Respiratory Rate 16 02/19/25 13:56 Blood Pressure 125/82 02/19/25 13:56 Pulse Oximetry 96 02/19/25 13:56 Oxygen Delivery Me thod Room Air 02/19/25 13:56 MDM - Wound/Laceration Medical Decision Making Wound copiously irrigated. Wound was closed with skin adhesive/glue and Steri- Strips. Finger was placed in a frog splint to avoid flexion of the PIP joint and wound dehiscence. Tetanus updated. Wound care/infection precautions discussed. Differential Diagnosis Likely laceration No radiology studies performed this visit Discharge Plan Discharge Patient Disposition: Home Clinical Impression: Laceration of right ring finger Condition: Stable Prescriptions: No Action calcium citrate-vitamin D3 315 mg-6.25 mcg (250 unit) tablet 3 tab PO QDAY Synapticon 1.5 billion cell capsule 1 cap PO QDAY omega-3 fatty acids [Fish Oil Concentrate] 1,000 mg capsule 1,000 mg PO QDAY fluticasone propionate [Flonase Allergy Relief] 50 mcg/actuation spray,suspension 1 spray intranasal DAILY Rx Instructions: administer into each nostril fexofenadine [Kassi Allergy] 180 mg tablet 180 mg PO DAILY melatonin 5 mg tablet 5 mg PO DAILY acetaminophen 500 mg tablet 500 mg PO BID PRN metronidazole 0.75 % cream 1 applic topical BID Qty: 45 0RF diclofenac sodium [Voltaren Arthritis Pain] 1 % gel 2 g topical QID PRN (Reason: arthritis) Qty: 100 0RF Rx Instructions: apply to joint swollen areas of hands (DME) AFO to right-gauntlet style See Rx Instructions .Route .MEDSUPPLY Qty: 1 0RF Rx Instructions: As directed by [employer] Prolia 60 mg/mL syringe See Rx Instructions .ROUTE .COMPLEX Qty: 1 3RF Dose Instruction: INJECT 60MG UNDER THE SKIN EVERY 6 MONTHS. Rx Instructions: INJECT 60MG UNDER THE SKIN EVERY 6 MONTHS. lovastatin 10 mg tablet 10 mg PO QDAY Qty: 90 1RF propranolol 20 mg tablet 20 mg PO BID Qty: 180 1RF omeprazole 20 mg capsule,delayed release(DR/EC) See Rx Instructions .ROUTE .COMPLEX Qty: 180 1RF Dose Instruction: TAKE 1 CAPSULE TWICE DAILY Rx Instructions: TAKE 1 CAPSULE TWICE DAILY hydrochlorothiazide 12.5 mg tablet See Rx Instructions .ROUTE .COMPLEX Qty: 68 0RF Dose Instruction: TAKE ONE TABLET BY MOUTH EVERY OTHER DAY ALTERNATING WITH ONE-HALF TABLET EVERY OTHER DAY DIRECTED Rx Instructions: TAKE ONE TABLET BY MOUTH EVERY OTHER DAY ALTERNATING WITH ONE-HALF TABLET EVERY OTHER DAY DIRECTED levothyroxine 50 mcg tablet 50 mcg PO DAILY Qty: 90 0RF celecoxib 200 mg capsule See Rx Instructions .ROUTE .COMPLEX Qty: 180 1RF Dose Instruction: TAKE ONE CAPSULE BY MOUTH TWICE A DAY Rx Instructions: TAKE ONE CAPSULE BY MOUTH TWICE A DAY Discharge Orders: Discharge ED (Routine); Ordered 02/19/25 Ordered By: Jessica Winston Referrals: Sierra Blanchard MD [Primary Care Provider] - Patient Instructions: Finger Laceration (ED) Activity Restrictions/Additional Instructions: Keep wound/laceration clean with warm soap and water twice daily. Monitor for signs of infection such as redness, swelling, increased pain, or drainage. Please seek medical re-evaluation if these occur. If your wound was closed with Steri-Strips or glue/adhesive these will fall off within the next week or so. Print Language: Khmer Coding Level of Care Code ED Airways Control Specialist for Rosales Grady
[2025-02-19] MEDS: tetanus-dipt-pertussis 0.5 mL SDV IM (16:41)
[2025-02-19 16:46] VITALS: PULSE 61; O2SAT 96
== END 2025-02-19 16:47 | disposition home or self-care (01) ==
PROVIDERS: Emergency Provider Physician Assistant; PCP Family Medicine
DX: S61.214A Laceration without foreign body of right ring finger without damage to nail, initial encounter (principal); Z87.891 Personal history of nicotine dependence; I10 Essential (primary) hypertension; W26.8XXA Contact with other sharp object(s), not elsewhere classified, initial encounter
CPT/HCPCS: 90471; 90715; 99283

== ENCOUNTER → 2025-03-05 08:22 | Outpatient (BNVA) | payer MEDICARE, SELFPAY | PROVIDERS: PCP Family Medicine; Visit Provider Specialist | DX: M19.012 Primary osteoarthritis, left shoulder (principal) | CPT/HCPCS: 20610; 77002; J1100; J2795; J3301; J9999 ==

== ENCOUNTER → 2025-03-09 15:10 | Outpatient (BNVA) | payer MEDICARE, SELFPAY | PROVIDERS: PCP Family Medicine; Visit Provider Family Medicine | DX: I10 Essential (primary) hypertension (principal); E03.9 Hypothyroidism, unspecified | CPT/HCPCS: 80053; 84443 ==

== ENCOUNTER → 2025-04-14 13:04 | Outpatient (BNVA) | payer MEDICARE, SELFPAY | PROVIDERS: PCP Family Medicine; Visit Provider Podiatrist Foot & Ankle Surgery | DX: M76.821 Posterior tibial tendinitis, right leg (principal); M25.571 Pain in right ankle and joints of right foot; G89.29 Other chronic pain; M79.671 Pain in right foot | CPT/HCPCS: 99213 ==

== ENCOUNTER 2025-05-05 14:09 | Oncology outpatient (recurring) (ONCR) | payer MEDICARE, SELFPAY ==
[2025-05-05] MEDS: denosumab 60 mg SDV SUBCUT (15:28)
== END 2025-05-24 23:59 | disposition home or self-care (01) ==
LOC: ONCMED 14:10
PROVIDERS: PCP Family Medicine; Visit Provider Specialist
DX: M81.0 Age-related osteoporosis without current pathological fracture (principal); Z79.899 Other long term (current) drug therapy
CPT/HCPCS: 96372; J0897

== ENCOUNTER → 2025-06-11 08:18 | Outpatient (BNVA) | payer MEDICARE, SELFPAY | PROVIDERS: PCP Family Medicine; Visit Provider Specialist | DX: M19.011 Primary osteoarthritis, right shoulder (principal); M19.012 Primary osteoarthritis, left shoulder | CPT/HCPCS: 20610; J1100; J2795; J3301; J9999 ==

== ENCOUNTER → 2025-07-13 14:32 | Outpatient (BNVA) | payer MEDICARE, SELFPAY | PROVIDERS: PCP Family Medicine; Visit Provider Family Medicine | DX: Z98.84 Bariatric surgery status (principal); M81.0 Age-related osteoporosis without current pathological fracture; E55.9 Vitamin D deficiency, unspecified | CPT/HCPCS: 82306 ==

== ENCOUNTER → 2025-07-19 13:01 | Outpatient (BNVA) | payer MEDICARE, SELFPAY | PROVIDERS: PCP Family Medicine; Visit Provider Podiatrist Foot & Ankle Surgery | DX: M76.821 Posterior tibial tendinitis, right leg (principal); Z91.81 History of falling | CPT/HCPCS: 99214 ==

== ENCOUNTER → 2025-07-21 08:52 | Outpatient (BNVA) | payer MEDICARE, SELFPAY | PROVIDERS: PCP Family Medicine; Visit Provider Internal Medicine | DX: E55.9 Vitamin D deficiency, unspecified (principal); M81.0 Age-related osteoporosis without current pathological fracture | CPT/HCPCS: 99214 ==

== ENCOUNTER → 2025-09-17 08:10 | Outpatient (BNVA) | payer MEDICARE, SELFPAY | PROVIDERS: PCP Family Medicine; Visit Provider Specialist | DX: M19.011 Primary osteoarthritis, right shoulder (principal); M19.012 Primary osteoarthritis, left shoulder | CPT/HCPCS: 20610; J1100; J2795; J3301; J9999 ==

== ENCOUNTER → 2025-10-05 11:16 | Outpatient (BNVA) | payer MEDICARE, SELFPAY | PROVIDERS: PCP Family Medicine; Visit Provider Family Medicine | DX: E11.9 Type 2 diabetes mellitus without complications (principal) | CPT/HCPCS: 80053 ==

== ENCOUNTER → 2025-10-25 13:01 | Outpatient (BNVA) | payer MEDICARE, SELFPAY | PROVIDERS: PCP Family Medicine; Visit Provider Podiatrist Foot & Ankle Surgery | DX: M76.821 Posterior tibial tendinitis, right leg (principal); Z91.81 History of falling | CPT/HCPCS: 99213 ==